=== PATIENT | female | born 1945 | race African-American/Black ===

== ENCOUNTER 2016-11-22 08:10 | Inpatient (IN) | payer MEDICARE, BC ==
[2016-11-20 15:10] LABS: HEMATOCRIT 35.8 % (36.0-48.0); HEMOGLOBIN 11.1 g/dL (12.0-16.0)
[2016-11-20 15:28] LABS: BUN (BLOOD UREA NITROGEN) 12 MG/DL (6-23); CALCIUM, SERUM 8.9 MG/DL (8.5-10.4); CHLORIDE, SERUM 104 MMOL/L (96-112); CO2 (CARBON DIOXIDE) 32 MMOL/L (24-34); CREATININE 0.71 MG/DL (0.55-1.02); GFR AFRICAN AMERICAN 99 ML/MIN (>=60); GFR NON AFRICAN AMERICAN 86 ML/MIN (>=60); POTASSIUM, SERUM 3.9 MMOL/L (3.5-5.3); SODIUM, SERUM 142 MMOL/L (135-148)
[2016-11-20 15:29] LABS: GLUCOSE, SERUM 102 MG/DL (60-99)
[~2016-11-22] VITALS: Ht 160 cm; Wt 91.2 kg
--- NOTE | ~2016-11-22 | CN ---
Consultation Report [address] [address] NAME: FIFI CANO : 45 STATUS : ADM IN PAT#: [id number] AGE: 71 ADM/REG DATE : 11/22/16 MR#: [id number] REPORT SERV DATE: 11/23/16 DICTATED BY: DEEP LYNNE DATE: 11/22/16 REPORT STATUS : Draft TRANSCRIBED BY: MODL DATE: 11/22/16 CRITICAL CARE CONSULT NOTE DATE OF CONSULTATION: 11/22/2016 REASON FOR CONSULTATION: Medical management. CHIEF COMPLAINT: None other than some neck pain. HISTORY OF PRESENT ILLNESS: Mrs. Cano is a 71-year-old female with a past medical history of hypertension and cervical disk disease who presented for an anterior approach of a cervical diskectomy and fusion between C3 and C7 along with interbody spacers. Otherwise, the patient currently is postop, and she is having a light full liquid drink. Currently, not short of breath. Vital signs stable. PAST MEDICAL HISTORY: Hypertension. HOME MEDICATIONS: Norvasc and Cymbalta. ALLERGIES: CODEINE. FAMILY HISTORY: Coronary artery disease and mother of pancreatic cancer. SOCIAL HISTORY: is currently with the patient. REVIEW OF SYSTEMS: Otherwise, no pertinent positive history. PHYSICAL EXAMINATION: VITAL SIGNS: Afebrile, oxygen saturation 100% on 2 L nasal cannula, respiratory rate 15, systolic blood pressure 171 on an A-line. GENERAL: The patient is alert and oriented, in no acute distress. HEENT: The patient has dressings; clean, dry, and intact. NECK: The patient is unable to move neck significantly due to the current surgery. PULMONARY: Lungs are clear to auscultation bilaterally. CARDIAC: Regular rate, no murmurs. ABDOMEN: Abdomen is soft, nontender, and nondistended. EXTREMITIES: Peripheral pulses bilaterally. LABORATORY EXAMINATION: Hemoglobin 11, normal kidney function. IMAGING: No current imaging. ASSESSMENT AND PLAN: Mrs. Cano is a 71-year-old female with a past medical history of Consultation Report [address] [address] NAME: FIFI CANO : 45 STATUS : ADM IN PAT#: [id number] AGE: 71 ADM/REG DATE : 11/22/16 MR#: [id number] REPORT SERV DATE: 11/23/16 DICTATED BY: DEEP LYNNE DATE: 11/22/16 REPORT STATUS : Draft TRANSCRIBED BY: MODL DATE: 11/22/16 hypertension who currently has a blood pressure of 170. 1. Hypertension: At this moment in time, we will start the patient's Norvasc back and place hydralazine as a p.r.n. 2. Cervical disk disease, status post surgery: Per primary team. 3. Neck pain: Per primary team. Thank you very much for this consultation. We will be available if needed, please call us with any further questions or concerns. HFQ/ANNIE Deep Lynne MD / [id number] CC: Wai Peterson, DO Fifi Villaseñor MD
--- NOTE | ~2016-11-22 | OP ---
Record Of Operation [facility] [address] [place]. [address] NAME: FIFI CANO : 45 STATUS : ADM IN PAT#: [id number] AGE: 71 ADM/REG DATE : 11/22/16 MR#: [id number] REPORT SERV DATE: 11/22/16 DICTATED BY: WAI PETERSON DATE: 11/22/16 REPORT STATUS : Draft TRANSCRIBED BY: MODGwyn DATE: 11/22/16 DATE OF PROCEDURE: 11/22/2016 POSTOPERATIVE DIAGNOSES: C3 through C7 disk disease and stenosis with cervical radiculopathy and cervical myelopathy. POSTOPERATIVE DIAGNOSES: C3 through C7 disk disease and stenosis with cervical radiculopathy and cervical myelopathy. PROCEDURES: 1. Anterior cervical diskectomy and fusion C3-C4, C4-C5, C5-C6, and C6-7. 2. Placement of Medtronic PEEK interbody spacer C3-C4, C4-C5, C5-C6, and C6-C7. 3. Anterior cervical plate from [employer]tr[employer] C3 through C7. 4. Allograft bone matrix. 5. Neuromonitoring. 6. Operative microscope. ANESTHESIA: General. ESTIMATED BLOOD LOSS: 50 mL. COMPLICATIONS: None. INDICATIONS: The patient is a 71-year-old with intractable neck and arm pain, progressive signs of myelopathy with upper extremity weakness. After progressive neurologic decline, elected to proceed with surgical intervention. PROCEDURE IN DETAIL: I identified the patient in the holding area. Consent was obtained, went to the operating room, underwent general anesthesia with endotracheal intubation. Prepped and draped in the usual sterile fashion. Operative safety pause was performed then we proceeded. An oblique incision was made over the left side of the neck. Dissection was carried down to the anterior aspect of the spine. Longus colli elevated. Self-retaining retractors were placed. Ivins pins were placed to verify operative level. Distraction was applied across the C3-C4 level. Operative microscope was brought in. A knife was used to perform an annulotomy. Anterior osteophytes removed. The Kerrison posterior osteophytes and uncinate processes taken down with a francisco bur. Foraminotomies were performed with a Kerrison. Endplates were prepared with curettes, rasp, and a cutting bur. Trial spacers were impacted and then a Medtronic PEEK interbody spacer with allograft bone matrix was placed at C3-C4. This was repeated again at C4-C5, C5-C6, and C6-7. Ivins pins were then removed. An anterior cervical plate from [employer] was placed at C3 through C7. Screws were placed and final tightened. Locking mechanism engaged. Final AP and lateral images obtained. Subplatysmal drain was placed. Layered closure was performed after irrigation and hemostasis. Sterile dressings applied. The patient was awoken and extubated, and taken to recovery room with plans for overnight stay in the intensive care unit for airway management. Record Of Operation [facility] [address] [place]. [address] NAME: FIFI CANO : 45 STATUS : ADM IN [facility]#: [id number] AGE: 71 ADM/REG DATE : 11/22/16 MR#: [id number] REPORT SERV DATE: 11/22/16 DICTATED BY: WAI PETERSON DATE: 11/22/16 REPORT STATUS : Draft TRANSCRIBED BY: MODL DATE: 11/22/16 OPERATIVE FINDINGS: There were no neuromonitoring alerts. EVAN/MODL Wai Peterson DO / [id number] CC: DO Fifi Chappell MD
--- NOTE | ~2016-11-22 | PREOPHP ---
PreOp History and Physical [address] [place]. [address] NAME: FIFI CANO : 45 STATUS : REG [facility]#: [id number] AGE: 71 ADM/REG DATE : 11/22/16 MR#: [id number] REPORT SERV DATE: 11/22/16 DICTATED BY: WAI PETERSON DATE: 11/22/16 REPORT STATUS : Draft TRANSCRIBED BY: ANNIE DATE: 11/22/16 CHIEF COMPLAINT: Neck pain and bilateral upper extremity pain. HISTORY OF PRESENT ILLNESS: The patient is a pleasant 71-year-old with intractable neck and bilateral upper extremity pain. The patient also complains of progressive signs of myelopathy that have gotten progressively worse despite failing conservative treatment. REVIEW OF SYSTEMS: She denies chest pain, shortness of breath, and bowel or bladder changes. ALLERGIES: CODEINE CAUSES ITCHING. MEDICATIONS: Amlodipine, cyclobenzaprine, duloxetine, Tylenol. FAMILY HISTORY: Noncontributory. PAST MEDICAL HISTORY: Anemia, fibromyalgia, hypertension, depression, high cholesterol. PHYSICAL EXAMINATION: VITALS: Height 5 feet 3 inches, weight 196, BMI 34.7. GENERAL: The patient is healthy appearing, no acute distress. PSYCH: Alert and oriented x3. Normal mood and affect. Gait is somewhat unsteady. VASCULAR: No extremity swelling. SPINE: Decreased cervical motion. HEART: Regular rate and rhythm. LUNGS: Clear to auscultation. ABDOMEN: Soft, nontender, nondistended with good bowel sounds. BREASTS AND RECTAL: Both deferred. NEUROLOGIC: The patient continues to have 5/5 bilateral upper extremity strength. IMAGING: I have reviewed the MRI scan. It does show C3-C7 disk disease and stenosis with spinal cord compression and nerve root compression. ASSESSMENT: C3-7 disk disease and stenosis, progressive signs of cervical myelopathy, failed conservative treatment. PLAN: The patient presents today for surgical intervention to prevent further neurologic decline. Consent was obtained. All questions answered. She is ready to proceed with surgery. EVAN/ANNIE Wai Peterson DO PreOp History and Physical [address] [place]. [address] NAME: FIFI CANO : 45 STATUS : REG [facility]#: [id number] AGE: 71 ADM/REG DATE : 11/22/16 MR#: [id number] REPORT SERV DATE: 11/22/16 DICTATED BY: WAI PETERSON DATE: 11/22/16 REPORT STATUS : Draft TRANSCRIBED BY: ANNIE DATE: 11/22/16 / [id number] CC: DO Fifi Chappell MD
[~2016-11-22 08:10] MED LIST: ACET500CAP PO; AMIT50 PO; CELEBREX2 PO; CYMBALTA20 PO; FLEX PO; HEMOCYTE324 MG PO; NORV10 PO; OXYCON20 PO; PCET PO; PROAIR HFA INH; ULTRAM50 PO; ZANTAC150 MG PO
[2016-11-23 04:45] LABS: BASOPHILS 0 %; EOSINOPHILS 0 %; HEMATOCRIT 33.1 % (36.0-48.0); HEMOGLOBIN 10.3 g/dL (12.0-16.0); IMMATURE GRANULOCYTES 0.2 %; IMMATURE GRANULOCYTES ABSOLUTE 0.03 10/3/uL (0.0-0.11); LYMPHOCYTES 9.2 %; LYMPHOCYTES ABSOLUTE 1.13 10/3/uL (0.67-4.30); MEAN CORPUS HGB CONC 31.1 g/dL (32.0-36.0); MEAN CORPUSCULAR HEMOGLOB 21.8 pg (26.0-34.0); MEAN CORPUSCULAR VOLUME 70.1 fL (80-100); MEAN PLATELET VOLUME 11.3 fL (9.2-13.0); MONOCYTES 4.5 %; MONOCYTES ABSOLUTE 0.55 10/3/uL (0.21-1.20); NEUTROPHILS 86.1 %; PLATELET COUNT 259 10/3/uL (150-400); RBC DISTRIBUTION WIDTH 16.5 % (12.0-16.0); RED CELL COUNT 4.72 10/6/uL (4.0-5.6)
[2016-11-23 04:46] LABS: MANUAL DIFF NO %; WHITE BLOOD CELLS 12.3 10/3/uL (4.5-10.5)
[2016-11-23 05:00] LABS: CALCIUM, SERUM 8.7 MG/DL (8.5-10.4); CHLORIDE, SERUM 100 MMOL/L (96-112); CO2 (CARBON DIOXIDE) 31 MMOL/L (24-34); CREATININE 0.54 MG/DL (0.55-1.02); GFR AFRICAN AMERICAN 110 ML/MIN (>=60); GFR NON AFRICAN AMERICAN 95 ML/MIN (>=60); PHOSPHORUS, SERUM 2.8 MG/DL (2.5-4.5); POTASSIUM, SERUM 3.3 MMOL/L (3.5-5.3); SODIUM, SERUM 140 MMOL/L (135-148)
[2016-11-23 05:01] LABS: BUN (BLOOD UREA NITROGEN) 5 MG/DL (6-23); GLUCOSE, SERUM 153 MG/DL (60-99)
[2016-11-24 05:38] LABS: BASOPHILS 0.2 %; BASOPHILS ABSOLUTE 0.02 10/3/uL (0.0-0.16); EOSINOPHILS 0.3 %; EOSINOPHILS ABSOLUTE 0.03 10/3/uL (0.0-0.53); HEMATOCRIT 34.2 % (36.0-48.0); HEMOGLOBIN 10.7 g/dL (12.0-16.0); IMMATURE GRANULOCYTES 0.2 %; IMMATURE GRANULOCYTES ABSOLUTE 0.02 10/3/uL (0.0-0.11); LYMPHOCYTES 31.2 %; MEAN CORPUS HGB CONC 31.3 g/dL (32.0-36.0); MEAN CORPUSCULAR HEMOGLOB 22.1 pg (26.0-34.0); MEAN CORPUSCULAR VOLUME 70.7 fL (80-100); MEAN PLATELET VOLUME 11.6 fL (9.2-13.0); MONOCYTES ABSOLUTE 0.72 10/3/uL (0.21-1.20); NEUTROPHILS 61.1 %; NEUTROPHILS ABSOLUTE 6.27 10/3/uL (2.02-8.40); PLATELET COUNT 254 10/3/uL (150-400); RBC DISTRIBUTION WIDTH 16.8 % (12.0-16.0); RED CELL COUNT 4.84 10/6/uL (4.0-5.6); WHITE BLOOD CELLS 10.3 10/3/uL (4.5-10.5)
[2016-11-24 05:41] LABS: MANUAL DIFF NO %
[2016-11-24 05:58] LABS: CALCIUM, SERUM 8.6 MG/DL (8.5-10.4); CHLORIDE, SERUM 99 MMOL/L (96-112); CO2 (CARBON DIOXIDE) 34 MMOL/L (24-34); GFR AFRICAN AMERICAN 101 ML/MIN (>=60); GFR NON AFRICAN AMERICAN 87 ML/MIN (>=60); POTASSIUM, SERUM 3.6 MMOL/L (3.5-5.3); SODIUM, SERUM 138 MMOL/L (135-148)
[2016-11-24 05:59] LABS: BUN (BLOOD UREA NITROGEN) 12 MG/DL (6-23); GLUCOSE, SERUM 115 MG/DL (60-99)
[2016-11-24 06:05] LABS: ANISOCYTOSIS 1+ (5-10/OIF) (0-5/OIF); PLATELET ESTIMATE ADQ (ADEQUATE)
[2016-11-25] MEDS ORDERED: PCET PO (11:11)
[2016-11-25] MEDS ORDERED: FLEX PO (11:11)
== END 2016-11-25 11:58 | disposition home or self-care (01) | DRG 472 ==
LOC: ENRESERVDT → ENRESERVTM → ENRESERV → SDC 08:10 → 3SO 16:27 → MIC 16:27 → 3SO 11-23 10:48
PROVIDERS: Internal Medicine Critical Care Medicine; Orthopaedic Surgery
PROC: 4A11X4G Monitoring of Peripheral Nervous Electrical Activity, Intraoperative, External Approach (ICD-10-PCS; 2016-11-22)
PROC: 0RG20A0 Fusion of 2 or more Cervical Vertebral Joints with Interbody Fusion Device, Anterior Approach, Anterior Column, Open Approach (ICD-10-PCS; principal; 2016-11-22 10:15)
PROC: 0RT30ZZ Resection of Cervical Vertebral Disc, Open Approach (ICD-10-PCS; 2016-11-22 10:15)
DX: M50.11 Cervical disc disorder with radiculopathy, high cervical region (principal); M50.01 Cervical disc disorder with myelopathy, high cervical region; I10 Essential (primary) hypertension; M79.7 Fibromyalgia; J45.909 Unspecified asthma, uncomplicated; F41.9 Anxiety disorder, unspecified; E66.9 Obesity, unspecified; Z68.35 Body mass index [BMI] 35.0-35.9, adult
CPT/HCPCS: 80048; 82962; 83735; 84100; 84132; 85014; 85018; 85025; 87641; 88304; 88311; 93005; A9270-GY; C1713; J0330; J0690; J2250; J2270; J2405; J3010